=== PATIENT | male | born 1975 | race Caucasian/White ===

== ENCOUNTER 2019-06-07 10:06 | Inpatient (IN) | payer MEDICAID ==
[~2019-06-07] VITALS: Ht 175.3 cm; Wt 88.5 kg
[2019-06-07 10:35] VITALS: Ht 175.3 cm; Wt 88.5 kg
[2019-06-07 11:21] LABS: BASOPHIL % 0.6 % (0-2); CARBON DIOXIDE 27.8 mmol/L (21-32); CREATININE SERUM 1.4 mg/dL (0.7-1.3); PLATELET COUNT 280 x10^3mcL (130-400); POTASSIUM SERUM 3.6 mmol/L (3.5-5.1)
[2019-06-07 11:22] LABS: RED CELL DISTRIBUTION WIDTH 16.6 % (11.5-14.5)
--- NOTE | 2019-06-07 11:25 | NUR ---
PILLOW GIVEN. WILL CONT TO MONITOR.
[2019-06-07 11:26] LABS: ALBUMIN 4.5 g/dL (3.4-5.0); BILIRUBIN TOTAL 0.9 mg/dL (0.20-1.00); TOTAL PROTEIN, SERUM 9.2 g/dL (6.4-8.2)
--- NOTE | 2019-06-07 11:30 | NUR ---
PT BIB GIRLFRIEND FOR C/O HAVING VOMITING THAT BEGAN YESTERDAY. PER GIRLFRIEND AND PATIENT, VOMITING STARTED LAST FRIDAY AND STOPPED, THEN BEGAN AGAIN YESTERDAY. PT DENIES PAIN TO ABDOMEN
--- NOTE | 2019-06-07 12:35 | NUR ---
DR TROY AT BEDSIDE FOR RE EVAL OF PATIENT
--- NOTE | 2019-06-07 13:01 | NUR ---
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 PT STS HE IS NOT ALLOWED TO HAVE MRI'S
[2019-06-07] MEDS ORDERED: GOOD SENSE OMEP20 MG PO (13:03)
--- NOTE | 2019-06-07 14:42 | NUR ---
SPOKE WITH DEYSI, INFORMATION TECHNOLOGY PROJECT MANAGER REGARDING PT STATUS
--- NOTE | 2019-06-07 15:30 | NUR ---
PT IN RM WITH GIRLFRIEND. NAD NOTED
--- NOTE | 2019-06-07 16:50 | NUR ---
RECEIVED PT FROM ED VIA [employer], CAME IN DUE TO ABDOMINAL PAIN, VOMITING AND DIARRHEA X1 WEEK, SYMPTOMS WERE RELIEVED FOR 1 DAY AND CAME BACK YESTERDAY. AAOX4. DENIES HEADACHE/DIZZINESS. ABLE TO FOLLOW COMMANDS. NO SOB NOTED, LUNG SOUNDS CTA. DENIES CHEST PAIN/PRESSURE. DENIES ABDOMINAL PAIN/NAUSEA/VOMITING AT THIS TIME, BUT STATED THAT HE HAD 20 EPISODES EACH OF COFFEE GROUND EMESIS AND CLEAR YELLOW DIARRHEA TODAY. C/O MILD BLOATING. ABDOMEN IS SOFT AND DISTENDED. BOWEL SOUNDS HYPOACTIVE. VOIDS. IV SITE PATENT AND INTACT. SIDE RAILS UPX2. CALL LIGHT ON REACH. ENDORSED TO PRIMARY NURSE JIMMY FOR CONTINUITY OF CARE
--- NOTE | 2019-06-07 16:50 | NUR ---
RECEIVED REPORT FROM [facility]. PT IS AAOX4. NPO AT THIS TIME DUE TO VOMITING COFFEE GROUND EMESIS. LUNG SOUND CTA. ON R/A. ABDOMEN SOFT, NONTENDER, NONDISTENDED. BOWEL SOUNDS ACTIVE X4. NO N/V AT THIS TIME. IVF RUNNING TO LAC. SITE WNL. PT DENIES PAIN AND DISCOMFORT AT THIS TIME. PT ORIENTED TO ROOM AND CALL LIGHT. BED IN LOW POSITION. CALL LIGHT WITHIN REACH.
[2019-06-07 17:04] VITALS: BP 122/73
[2019-06-07 17:56] LABS: MAGNESIUM 1.7 mg/dL (1.8-2.4); PHOSPHOROUS 2.2 mg/dL (2.5-4.9)
[2019-06-07 18:01] VITALS: BP 122/73
--- NOTE | 2019-06-07 19:15 | NUR ---
INFLUENZA SWAB COMPLETED AND TAKEN TO LAB. PT DENIES N/V AT THIS TIME. DENIES PAIN AND DISCOMFORT, IVF RUNNING TO LAC, SITE WNL. NO S/S OF INFECTION OR INFILTRATION. CALL LIGHT WITHIN REACH. BED IN LOWEST POSITION. WILL ENDORSE ALL CARE TO NOC RN.
--- NOTE | 2019-06-07 19:48 | NUR ---
RECEIVED PATIENT IN BED AWAKE, ALERT AND ORIENTED WITH NO C/O PAIN AND ABDOMINAL DISCOMFORT AT THIS TIME. BREATHING EASY AND NONLABOR SATTING AT 98% RA. HAD BM WATERY LOOSE STOOL SAMPLE COLLECTED FOR OB STOOL, C DIFF AND CULTURE. IV TO LAC INTACT AND INFUSING WELL. WILL CONTINUE TO MONITOR.
[2019-06-07 20:24] VITALS: BP 120/77
--- NOTE | 2019-06-07 22:24 | NUR ---
VOIDED URINE SPECIMEN COLLECTED FOR UA, UDS URC, SENT TO LAB.
--- NOTE | 2019-06-07 22:44 | NUR ---
RT AT BEDSIDE, BIPAP STARTED, PATIENT TOLERATING IT. WILL CONTINUE TO MONITOR.
--- NOTE | 2019-06-07 23:31 | NUR ---
APPEAR TO BE SLEEPING THIS TIME BREATHING EASY AND NONLABOR. WILL CONTINUE TO MONITOR.
[2019-06-08 01:07] LABS: microscopic required? YES; urine erythrocyte NEGATIVE (NEGATIVE)
[2019-06-08 01:15] LABS: AMPHETAMINE QUAL UR NONE DETECTED (See below)
--- NOTE | 2019-06-08 05:11 | NUR ---
CHECKED AT INTERVALS FOR NEEDS AND SAFETY. HAD BM WATERY DARK COLOR IN SMALL AMOUNT. KEPT ON NPO. ALL NEEDS ATTENDED.
[2019-06-08 05:34] VITALS: BP 104/57
--- NOTE | 2019-06-08 07:15 | NUR ---
RECEIVED PATIENT. AAOX4. STABLE, NO ACUTE RESP DISTRESS NOTED. NO C/O PAIN AT THIS TIME. REMAINS ON ROOM AIR. IV INTACT AND PATENT. NS RUNNING AT 100 ML/HR TO LAC 20G. NO INFILTRATION NOTED. PATIENT ABLE TO AMBULATE WITH STEADY GAIT. SAFETY PRECAUTION IN PLACE. CALL LIGHT WITHIN REACH. WILL CONTINUE TO MONITOR.
[2019-06-08 08:16] LABS: BASOPHIL % 0.5 % (0-2); PLATELET COUNT 224 x10^3mcL (130-400)
[2019-06-08 08:33] VITALS: BP 105/66
--- NOTE | 2019-06-08 08:59 | NUR ---
SPOKE WITH DR. QUINONES REGARDING PATIENT PLAN OF CARE. PER DR. QUINONES, GET CONSENT FOR EGD TO BE DONE FOR TODAY 06/08/2019. PER DR. QUINONES, HE WILL PUT IN THE ORDER RIGHT NOW FOR EGD. WILL CARRY OUT ORDER AND NOTIFY PATIENT.
[2019-06-08 09:00] LABS: RED CELL DISTRIBUTION WIDTH 16.1 % (11.5-14.5)
--- NOTE | 2019-06-08 10:45 | NUR ---
DR. QUINONES SEEN SPEAKING WITH PATIENT REGARDING EGD PROCEDURE. PATIENT AND FAMILY VERBALIZED UNDERSTANDING. ALL QUESTIONS AND CONCERNS ADDRESSED. WILL LET PATIENT SIGN CONCENT FORMS. WILL CONTINUE TO MONITOR.
--- NOTE | 2019-06-08 11:00 | NUR ---
SPOKE WITH DR. OQUENDO REGARDING ORDERED BMP LAB SCHEDULED AT 06/09/2019. PER DR. OQUENDO, SHE WILL CHANGE SCHEDULE TO TODAY. ALSO INFORMED DR. OQUENDO ABOUT PATIENT UA RESULT POSITIVE. NO NEW ORDERS AT THIS TIME. WILL CONTINUE TO MONITOR.
--- NOTE | 2019-06-08 11:25 | NUR ---
GAVE PATIENT REPORT TO OR NURSE. SPECIFICALLY NOTIFIED OR NURSE REGARDING PATIENT NEED FOR BIPAP AT NIGHT DUE TO MED HISTORY OF CONGENITAL HYPOVENTILATION SYNDROME. PATIENT TAKEN DOWN TO DO EGD PROCEDURE. PATIENT STABLE. WILL WAIT FOR ARRIVAL TO UNIT.
--- NOTE | 2019-06-08 12:30 | NUR ---
RECEIVED PATIENT BACK FROM OUTPATIENT. STABLE. NO ACUTE RESP DISTRESS NOTED. ON ROOM AIR WITH O2 SAT 100% RECONNECTED TO NS AT 100 ML/HR. TOLERATING WELL. SAFETY PRECAUTION IN PLACE. CALL LIGHT WITHIN REACH. FAMILY AT BEDSIDE. WILL CONTINUE TO MONITOR.
[2019-06-08 13:26] VITALS: BP 114/65
[2019-06-08 14:30] LABS: CALCIUM 8.3 mg/dL (8.5-10.1); CARBON DIOXIDE 24.1 mmol/L (21-32); CHLORIDE SERUM 107 mmol/L (98-107); CREATININE SERUM 0.9 mg/dL (0.7-1.3); GFR1 > 60 mL/min; GLUCOSE SERUM 146 mg/dL (74-106); POTASSIUM SERUM 3.4 mmol/L (3.5-5.1); SODIUM SERUM 140 mmol/L (136-145)
--- NOTE | 2019-06-08 15:33 | NUR ---
PATIENT IN BED, STABLE. NO ACUTE RESP DISTRESS NOTED. NO C/O PAIN AT THIS TIME. IV INTACT AND PATENT. NO INFILTRATION NOTED. NS RUNNING AT 100ML/HR. SAFETY PRECAUTION IN PLACE. CALL LIGHT WITHIN REACH. WILL CONTINUE TO MONITOR.
--- NOTE | 2019-06-08 16:30 | NUR ---
SPOKE WITH DR. OQUENDO REGARDING PATIENT REQUEST TO SPEAK WITH HER REGARDING EGD RESULTS AND PLAN OF CARE. PER DR. OQUENDO, SHE WILL TAKE A LOOK AT THE REPORT AND WILL COME UP TO TALK WITH THE FAMILY. PATIENT AND FAMILY MADE AWARE. WILL CONTINUE TO MONITOR.
[2019-06-08] MEDS ORDERED: PROTONIX40 MG PO (16:34)
[2019-06-08 16:44] VITALS: BP 123/60
--- NOTE | 2019-06-08 16:59 | NUR ---
PER PATIENT, DR. OQUENDO CAME AND SPOKE WITH THEM ABOUT PATIENT DIAGNOSIS. ALL QUESTIONS AND CONCERNS ADDRESSED. NOTIFIED PATIENT ABOUT DISCHARGE ORDER. PATIENT STABLE. NO C/O PAIN OR DISCOMFORT. SAFETY PRECAUTION IN PLACE. GIRLFRIEND AT BEDSIDE. CALL LIGHT WITHIN REACH. WILL CONTINUE TO MONITOR.
[2019-06-08 17:02] VITALS: BP 123/60
--- NOTE | 2019-06-08 17:47 | NUR ---
DISCHARGE HOME INSTRUCTIONS PROVIDED TO PATIENT AND GIRLFRIEND. ALL QUESTIONS AND CONCERNS ADDRESSED. PATIENT VERBALIZED UNDERSTANDING. PATIENT STABLE, WILL LEAVE THE UNIT AFTER EATING DINNER. D/C IV TO LAC, TOLERATED WELL. CATHETER INTACT, GAUZE AND TAPE IN PLACE. NO C/O PAIN AT THIS TIME. NO RESP DISTRESS NOTED. REMAINS ON ROOM AIR. GIRLFRIEND AT BEDSIDE. SAFETY PRECAUTION IN PLACE. CALL LIGHT WITHIN REACH. WILL CONTINUE TO MONITOR.
--- NOTE | 2019-06-08 18:00 | NUR ---
PATIENT IS BEING DISCHARGED IN STABLE CONDITION. NO COMPLAINTS OF PAIN OR DISCOMFORT. ALL BELONGINGS SENT HOME WITH PATIENT. ID BAND REMOVED. ALL NEEDS MET. ACCOMPANIED TO LOBBY WITH GIRLFRIEND.
== END 2019-06-08 18:00 | disposition home or self-care (01) | DRG 241 ==
LOC: ED 10:06 → MU 16:10
PROVIDERS: Emergency Medicine; General Practice; Internal Medicine Gastroenterology; ADMIT Family Medicine
PROC: 0DB68ZX Excision of Stomach, Via Natural or Artificial Opening Endoscopic, Diagnostic (ICD-10-PCS; principal; 2019-06-08 11:15)
DX: K29.01 Acute gastritis with bleeding (principal); N17.0 Acute kidney failure with tubular necrosis; E86.0 Dehydration; A08.4 Viral intestinal infection, unspecified; G47.31 Primary central sleep apnea; K21.9 Gastro-esophageal reflux disease without esophagitis; G47.35 Congenital central alveolar hypoventilation syndrome; D72.829 Elevated white blood cell count, unspecified; Z68.28 Body mass index [BMI] 28.0-28.9, adult
CPT/HCPCS: 43235; 87046; 87046-59; 87804; 88344; 94150; C9113; G0378; G0480; J1200; J1610; J2250; J2310; J2405; J2765; J3010; J3490; J7030; J8597; Q0092

== ENCOUNTER 2019-06-11 17:13 | Emergency (ER) | payer MEDICAID ==
[~2019-06-11] VITALS: Ht 175.3 cm; Wt 86.6 kg
[~2019-06-11 17:13] MED LIST: GOOD SENSE OMEP20 MG PO; PROTONIX40 MG PO
[2019-06-11 17:36] VITALS: Ht 175.3 cm; Wt 86.6 kg
[2019-06-11 18:31] LABS: CHLORIDE SERUM 100 mmol/L (98-107); CREATININE SERUM 1.2 mg/dL (0.7-1.3); GFR1 > 60 mL/min; GLUCOSE SERUM 94 mg/dL (74-106); POTASSIUM SERUM 3.3 mmol/L (3.5-5.1); SODIUM SERUM 140 mmol/L (136-145)
[2019-06-11 18:34] LABS: BASOPHIL % 0.5 % (0-2); PLATELET COUNT 281 x10^3mcL (130-400); RED CELL DISTRIBUTION WIDTH 15.2 % (11.5-14.5)
[2019-06-11 18:36] LABS: ALBUMIN 4.6 g/dL (3.4-5.0); ALKALINE PHOSPHATASE 114 U/L (46-116); ALT/SGPT 66 U/L (16-63); AST/SGOT 33 U/L (15-37); BILIRUBIN TOTAL 0.79 mg/dL (0.20-1.00); LIPASE 106 IU/L (73-393); TOTAL PROTEIN, SERUM 8.9 g/dL (6.4-8.2)
[2019-06-12 01:04] VITALS: BP 119/97
== END 2019-06-12 01:10 | disposition home or self-care (01) ==
LOC: ED 17:13
DX: K44.9 Diaphragmatic hernia without obstruction or gangrene (principal); R11.2 Nausea with vomiting, unspecified; R19.7 Diarrhea, unspecified; Z88.1 Allergy status to other antibiotic agents; Z95.0 Presence of cardiac pacemaker
CPT/HCPCS: J1200; J2765; J7030